=== PATIENT | female | born 1995 | race Caucasian/White ===

== ENCOUNTER 2024-10-21 07:38 | Outpatient (REF) | payer OTHER, SELFPAY ==
--- NOTE | ~2024-10-21 | XR_ITS ---
EXAMINATION: XR ANKLE 3 OR MORE VIEWS LEFT HISTORY: M25.572 - Pain in left ankle and joints of left foot COMPARISON: There are no prior studies available for comparison. FINDINGS: Three views of the left ankle are submitted. Osseous mineralization is normal. There is no fracture or dislocation. The joint spaces are preserved. The soft tissues are unremarkable. XR/XR ankle LT min 3V IMPRESSION: Unremarkable examination of the left ankle. Electronically signed by: Nick Garcia MD 10/21/2024 03:47 PM EDT
== END 2024-10-21 07:39 | disposition home or self-care (01) ==
LOC: HO.HOSX 07:38
DX: S93.402A Sprain of unspecified ligament of left ankle, initial encounter (principal)
CPT/HCPCS: 73610

== ENCOUNTER 2024-10-21 09:46 | Outpatient (AMB) | payer OTHER, SELFPAY ==
--- NOTE | 2024-10-21 09:46 | MHC.OFFVIS ---
Vital Signs 10/21/24 09:57 Height 5 ft 7 in Weight 220 lb BMI 34.5 Intake Visit Reasons: New Patient - Left Ankle Injury Intake Note: Melissa is a 28 year old female who presents today as a new patient with her father for evaluation of her left ankle pain. Patient reports that she was stepping off the porch onto uneven ground and she rolled the ankle laterally Saturday10/16/24. She is taking Tylenol and Ibuprofen for her pain which does help. She was wearing an rachell bandage which was helpful. Allergies amoxicillin Allergy (Verified 10/21/24 09:56) Rash montelukast [From Singulair] Allergy (Verified 10/21/24 09:56) Swelling HPI HPI New Patient - Left Ankle Injury: Details: Melissa is a 28 year old female who presents today as a new patient with her father for evaluation of her left ankle pain. Patient reports that she was stepping off the porch onto uneven ground and she rolled the ankle laterally Saturday10/16/24. She is taking Tylenol and Ibuprofen for her pain which does help. She was wearing an rachell bandage which was helpful. [facility] Social History (Updated 10/21/24 @ 09:57 by Lizz Reza [facility]) Current occupational status: employed Current occupation: Nurse Review of Systems Const All systems reviewed & are unremarkable except as noted in HPI and below Physical Exam Vital Signs: BMI result Body Mass Index 34.5 Extrem Other: Patient's L ankle slightly swollen in the lateral aspect to inspection No erythema, ecchymosis No lacerations, abrasions, open areas No evidence of infection Patient reports moderate tenderness to palpation of the lateral malleolus of the L ankle, worst over the ATFL No tenderness to palpation of the syndesmosis Pain with all ROM, worst with inversion Distal sensation intact Capillary refill brisk Results Reviewed Results Reviewed: X rays taken in the office today and independently reviewed by me demonstrate no fracture or acute bony abnormality of the L ankle. Assessment & Plan Assessment & Plan (1) Left ankle sprain: Code(s): S93.402A - Sprain of unspecified ligament of left ankle, initial encounter Category: Medical Plan 1. L ankle sprain Patient is educated about the injury Patient is educated about the typical recovery course At this time, patient is provided with a lace up ankle brace to be worn when weight bearing Patient is also educated on conservative pain management measures, such as RICE protocol and OTC pain medications Patient is amenable to this plan F/u in 3 weeks Orders: Orders XR ankle LT min 3V Today M25.572 - Pain in left ankle and joints of left foot Coding Level of Care Code New Pt Level 3 (53232) Diagnoses Left ankle sprain S93.402A
[2024-10-21 09:57] VITALS: BMI 34.5
== END 2024-10-21 10:28 | disposition home or self-care (01) ==
DX: S93.402A Sprain of unspecified ligament of left ankle, initial encounter (principal)
CPT/HCPCS: 99203

== ENCOUNTER → 2024-10-21 09:50 | Outpatient (BNV) | payer OTHER, SELFPAY | PROVIDERS: Visit Provider Radiology Diagnostic Radiology | DX: M25.572 Pain in left ankle and joints of left foot (principal) | CPT/HCPCS: 73610 ==